=== PATIENT | female | born 1970 | race Caucasian/White ===

== ENCOUNTER 2016-08-16 18:08 | Emergency (ER) | payer OTHER ==
[~2016-08-16] VITALS: Ht 160 cm; Wt 79.0 kg
[~2016-08-16 18:08] MED LIST: ANIMAL SHAPES1 EAC3 PO; BENADRYL50 MG/ML IM; CARAFATE100 MG/ML PO; CIPRO500 MG PO; CLARITIN,ALAVAR10 MG PO; FEOSOL325 MG PO; FLAGYL500 MG PO; HUMIRA20 MG/0.4 SQ; HYDROCODON-ACE1 EAC7 PO; LUNESTA2 MG PO; MEGA BIOTIN10000 MCG PO; MIRENA52 MG IY; NORA-BE0.35 MG PO; NORCO 5/3251 TABLET PO; OMEPRAZOLE40 M1 PO; PAXIL20 MG PO; PENTACEL IM; PRENATAL TABLE1 EACH PO; PRENATAL VITAM1 EAC3 PO; PROTONIX40 MG PO; REMICADE10 MG/ML IV; SPRINTEC1 EACH PO; TORADOL10 MG PO; TPN IV; TYLENOL ARTHRI650 MG PO; TYLENOL REGULA325 MG PO; VANCOMYCIN HCL125 MG PO; XANAX0.5 MG PO; ZOFRAN ODT4 MG PO; ZOFRAN4 MG PO
[2016-08-16 18:50] LABS: HEMATOCRIT 42.5 % (36.0-46.0); MCH 31.8 PG (29.0-34.0); MCHC 33.6 G/DL (30.0-36.0); MCV 94.7 FL (83-99); MEAN PLAT.VOLUME 8.6 uM^3 (9.5-12.4); PLATELET COUNT 270 K/uL (156-360); RBC DIS.WIDTH-CV 12.4 % (11.8-14.6); RBC DIS.WIDTH-SD 43.3 % (39-53); RED BLOOD COUNT 4.49 M/uL (3.80-5.20); WHITE BLOOD COUNT 17.7 K/uL (4.1-10.2)
[2016-08-16 19:06] LABS: CHLORIDE 111 mEq/L (99-109); POTASSIUM 3.7 mEq/L (3.7-5.4); SODIUM 139 mEq/L (136-147)
[2016-08-16 19:08] LABS: GLUCOSE 104 mg/dL (70-99)
[2016-08-16 19:09] LABS: ANION GAP 7 MEQ/L (2-14)
[2016-08-16 19:10] LABS: TOTAL BILIRUBIN 0.8 mg/dL (0.0-1.0)
[2016-08-16 19:12] LABS: ALKALINE PHOSPHATASE 78 IU/L (3-129)
[2016-08-16 19:15] LABS: GFR ESTIMATE (CALCULATED) > 59 mL/min/; LIPASE 40 U/L (1.0-51.0); UREA NITROGEN (BUN) 19 mg/dL (9-23)
[2016-08-16 19:21] LABS: QUANTITATIVE HCG < 4.0 MIU/ML
[2016-08-16] MEDS ORDERED: NORCO 5/3251 TABLET PO (21:49)
[2016-08-16 22:20] LABS: ADD MIUA? YES; BILIRUBIN NEGATIVE; BLOOD NEGATIVE; COLOR YELLOW ((YELLOW)); GLUCOSE (STRIP) NEGATIVE; KETONES 20; LEUKOCYTES TRACE; NITRITE NEGATIVE; PROTEIN (STRIP) NEGATIVE; SPECIFIC GRAVITY 1.033 (1.000-1.030); UROBILINOGEN 0.2 MG/DL (0.2-1.0)
[2016-08-16 22:33] LABS: BACTERIA NONE SEEN /HPF; EPITHELIAL CELLS 1+ /HPF; MUCUS TRACE /LPF; UCUL ADDED? NO; WHITE BLOOD CELLS 0-5 /HPF (0-5)
[2016-08-16 23:15] LABS: C DIFF TOXIN NEGATIVE (NEGATIVE)
[2016-08-16 23:17] LABS: PROBE CHECK PASS; SPECIMEN PROCESSING CONTROL PASS
[2016-08-16 23:45] VITALS: BP 102/67
== END 2016-08-16 23:52 | disposition home or self-care (01) ==
LOC: EME 18:08
PROVIDERS: Emergency Medicine
DX: R10.9 Unspecified abdominal pain (principal); R11.2 Nausea with vomiting, unspecified; R19.7 Diarrhea, unspecified; K21.9 Gastro-esophageal reflux disease without esophagitis; K50.90 Crohn's disease, unspecified, without complications; Z87.891 Personal history of nicotine dependence
CPT/HCPCS: 74177; 80053; 81003; 83690; 84702; 85027; 87493; 99281; 99285; J2270; J2405; J7040

== ENCOUNTER → 2017-04-16 | Outpatient (CLI) | payer OTHER ==
[~2017-04-16] VITALS: Ht 157.5 cm; Wt 83.9 kg
[~2017-04-16] MED LIST changes: +NORLYDA0.35 MG PO; +VITAMIN B-12250 MCG PO
== END | disposition home or self-care (01) ==
LOC: AMB 10:39
PROC: 0DJ08ZZ Inspection of Upper Intestinal Tract, Via Natural or Artificial Opening Endoscopic (ICD-10-PCS; principal; 2017-04-16)
DX: K44.9 Diaphragmatic hernia without obstruction or gangrene (principal); Z98.84 Bariatric surgery status; K91.2 Postsurgical malabsorption, not elsewhere classified; K50.90 Crohn's disease, unspecified, without complications; K21.9 Gastro-esophageal reflux disease without esophagitis; Z88.1 Allergy status to other antibiotic agents; Z79.899 Other long term (current) drug therapy; Z86.010 Personal history of colon polyps; Z86.19 Personal history of other infectious and parasitic diseases; Z90.49 Acquired absence of other specified parts of digestive tract
CPT/HCPCS: J2250